=== PATIENT | female | born 1955 | race Caucasian/White ===

== ENCOUNTER 2020-08-10 05:53 | Day surgery (SDC) | payer MEDICARE, BC ==
[~2020-08-10 05:53] MED LIST: Dextrose 5%-0.45% NaCl 1,000 ML IV SCH; Sodium Chloride 0.9% 10 ML Syringe FLUSH PRN
[2020-08-10] MEDS ORDERED: fentaNYL 100 MCG/2 ML SDV IV ONE ×3 (05:54→06:56)
[2020-08-10] MEDS ORDERED: Midazolam 1 MG/ML 2 ML SDV IV ONE ×3 (05:54→06:57)
[2020-08-10] MEDS ORDERED: Midazolam 1 MG/ML 2 ML SDV ONE (06:12)
[2020-08-10] MEDS ORDERED: fentaNYL 100 MCG/2 ML SDV ONE (06:12)
--- NOTE | 2020-08-10 07:50 | OR ---
DATE: 08/10/2020 PROCEDURES: Esophagogastroduodenoscopy and multiple pinch biopsies. INSTRUMENT USED: [id number]-HQ190 Olympus video panendoscope. PREMEDICATIONS: No oral or topical anesthesia was used. Fentanyl 100 mcg intravenous, Versed 2 mg intravenous, and nasal O2 cannula. The procedure was done under pulse oximetry, BP recording, and site monitor. INDICATIONS: The patient with persistent longstanding heartburn, upper abdominal pain, and bloating, unexplained and not responsive to medical measures, on PPI. Esophagogastroduodenoscopy is performed for detection of any active erosive lesions, Chu esophagus and/or malignancy also under consideration, H pylori status to be determined, small bowel biopsies to be obtained for celiac disease, endoscopic hemostasis therapy if needed. DESCRIPTION OF PROCEDURE: The scope was passed with ease. Adequate visualization of the esophagus was made from proximal to distal areas. No upper esophageal lesions were identified. No distal esophageal stricture. No uphill or downhill esophageal varices. No Alexandra-Nunez tear. No evidence of erosive esophagitis by Tell criteria. No esophageal polyp or tumor mass was identified. The Z-line was seen at around 40 cm distal to the oral verge. No proximal gastric varices were noted. Gastric fundus examination by retroflexion showed no polypoid lesions. No gastric ulcer, malignant mass, or vascular ectasia was identified. The duodenal bulb showed no ulcer. The visualized second part of the duodenum was unremarkable. Multiple pinch biopsies, 4 in number, were taken from different areas of the second part of the duodenum, and tissues were also obtained from the duodenal bulb at 9 and 12 o'clock positions and sent for any histopathologic evidence of celiac disease. Multiple pinch biopsies were also obtained from the gastric antrum and proximal body and sent for PyloriTek test for H pylori and histopathology. No bleeding was noted from any of the visualized areas at the completion of the examination. Photographs were taken of the duodenal bulb, gastric antrum, fundus, and distal esophagus. IMPRESSION: Normal study. The patient tolerated the procedure well. [facility] /[id number]
[2020-08-10 08:05] VITALS: PULSE 54
[2020-08-10 10:02] VITALS: BP 135/74
== END 2020-08-10 09:11 | disposition home or self-care (01) ==
LOC: DL.ENDO 05:53
PROVIDERS: ATTEND Internal Medicine Gastroenterology
DX: K29.80 Duodenitis without bleeding (principal); K21.9 Gastro-esophageal reflux disease without esophagitis
CPT/HCPCS: 43239; 87077; J2250; J3010; J7042; 88305

== ENCOUNTER 2024-03-30 06:48 | Day surgery (SDC) | payer MEDICARE, BC ==
[2024-03-30] MEDS ORDERED: Acetaminophen/Codeine 300-30 MG Tab PO PRN (07:00)
[2024-03-30] MEDS ORDERED: Ondansetron 4 MG/2 ML SDV IVPUSH PRN (07:00)
[2024-03-30] MEDS ORDERED: Sodium Chloride 0.9% 10 ML Syringe FLUSH PRN (07:00)
[2024-03-30] MEDS ORDERED: Acetaminophen 325 MG Tab PO PRN (07:00)
[2024-03-30] MEDS: Proparacaine 0.5% Ophth Soln 15 ML Bottle EYELF ONE ×2 (07:30→09:09)
[2024-03-30] MEDS: Povidone-Iodine 5% Sterile Ophth Soln 30 ML Bottle EYELF ONE ×2 (07:31→09:09)
[2024-03-30] MEDS: Tropicamide 1% Ophth Soln 15 ML Bottle EYELF ONE (07:32)
[2024-03-30] MEDS: Moxifloxacin 0.5% Ophth Soln 3 ML Bottle EYELF ONE (07:32)
[2024-03-30] MEDS: Timolol Maleate 0.5% Ophth Soln 5 ML Bottle EYELF ONE (07:33)
[2024-03-30] MEDS: Phenylephrine 10% Ophth Soln 5 ML Bot EYELF ONE (07:33)
[2024-03-30] MEDS: Cataract Ophth Solution EYELF ONE (07:34)
[2024-03-30] MEDS: Apraclonidine 0.5% Ophth Soln 5 ML Bot EYELF ONE (09:09)
[2024-03-30] MEDS: Dexamethasone/Neomycin/Polymyxin B Ophth Oint 3.5 GM Tube EYELF ONE (09:09)
[2024-03-30] MEDS: Diclofenac Sodium 0.1% Ophth Soln 5 ML Bottle EYELF ONE (09:09)
[2024-03-30] MEDS: Lidocaine 1% 30 ML SDV ONE (09:13)
[2024-03-30] MEDS: VANCOmycin 500 MG SDV EYELF ONE (09:14)
[2024-03-30 09:53] VITALS: BP 139/88; PULSE 63
== END 2024-03-30 09:58 | disposition home or self-care (01) ==
LOC: DL.SDS 06:48
PROVIDERS: ATTEND Ophthalmology
DX: H25.812 Combined forms of age-related cataract, left eye (principal); N18.31 Chronic kidney disease, stage 3a; Z79.899 Other long term (current) drug therapy
CPT/HCPCS: 66984; A9270; J3370; V2632; J3490

== ENCOUNTER 2024-04-06 07:20 | Day surgery (SDC) | payer MEDICARE, BC ==
[2024-04-06] MEDS ORDERED: Acetaminophen 325 MG Tab PO PRN (07:30)
[2024-04-06] MEDS ORDERED: Acetaminophen/Codeine 300-30 MG Tab PO PRN (07:30)
[2024-04-06] MEDS ORDERED: Ondansetron 4 MG/2 ML SDV IVPUSH PRN (07:30)
[2024-04-06] MEDS: Sodium Chloride 0.9% 10 ML Syringe FLUSH PRN (07:46)
[2024-04-06] MEDS: Moxifloxacin 0.5% Ophth Soln 3 ML Bottle EYERT ONE (07:48)
[2024-04-06] MEDS: Proparacaine 0.5% Ophth Soln 15 ML Bottle EYERT ONE ×2 (07:48→08:54)
[2024-04-06] MEDS: Povidone-Iodine 5% Sterile Ophth Soln 30 ML Bottle EYERT ONE ×2 (07:49→08:55)
[2024-04-06] MEDS: Tropicamide 1% Ophth Soln 15 ML Bottle EYERT ONE (07:50)
[2024-04-06] MEDS: Phenylephrine 10% Ophth Soln 5 ML Bot EYERT ONE (07:50)
[2024-04-06] MEDS: Timolol Maleate 0.5% Ophth Soln 5 ML Bottle EYERT ONE (07:51)
[2024-04-06] MEDS: Cataract Ophth Solution EYERT ONE (07:51)
[2024-04-06] MEDS: Apraclonidine 0.5% Ophth Soln 5 ML Bot EYERT ONE (08:56)
[2024-04-06] MEDS: Dexamethasone/Neomycin/Polymyxin B Ophth Oint 3.5 GM Tube EYERT ONE (08:56)
[2024-04-06] MEDS: Diclofenac Sodium 0.1% Ophth Soln 5 ML Bottle EYERT ONE (08:56)
[2024-04-06] MEDS: Lidocaine 1% 30 ML SDV ONE (08:57)
[2024-04-06] MEDS: VANCOmycin 500 MG SDV EYERT ONE (08:57)
[2024-04-06 09:40] VITALS: BP 130/85; PULSE 68
== END 2024-04-06 09:44 ==
LOC: DL.SDS 07:20
PROVIDERS: ATTEND Ophthalmology
DX: H25.811 Combined forms of age-related cataract, right eye (principal); N18.31 Chronic kidney disease, stage 3a; D63.1 Anemia in chronic kidney disease; Z88.8 Allergy status to other drugs, medicaments and biological substances; Z79.899 Other long term (current) drug therapy
CPT/HCPCS: 66984; A9270; J3370; V2632; 00142; J3490

== ENCOUNTER 2025-03-02 05:50 | Day surgery (SDC) | payer MEDICARE, BC ==
[2025-03-02] MEDS ORDERED: Propofol 200 MG/20 ML SDV IV ONE (05:51)
[2025-03-02] MEDS ORDERED: Lactated Ringers 1,000 ML IV ONE (05:51)
[2025-03-02] MEDS: Lactated Ringers 1,000 ML IV SCH (06:17)
[2025-03-02 08:39] VITALS: BP 111/87; PULSE 62
[2025-03-02] MEDS ORDERED: Propofol 200 MG/20 ML SDV ONE (09:37)
== END 2025-03-02 08:40 | disposition home or self-care (01) ==
LOC: DL.ENDO 05:50
PROVIDERS: ATTEND Internal Medicine Gastroenterology
DX: Z12.11 Encounter for screening for malignant neoplasm of colon (principal); K57.30 Diverticulosis of large intestine without perforation or abscess without bleeding; N18.30 Chronic kidney disease, stage 3 unspecified; Z88.8 Allergy status to other drugs, medicaments and biological substances; Z88.5 Allergy status to narcotic agent; Z86.0100 Personal history of colon polyps, unspecified; Z79.899 Other long term (current) drug therapy
CPT/HCPCS: J2704; J7120